=== PATIENT | female | born 1955 | race Hispanic/Latino ===

== ENCOUNTER → 2023-12-25 | Outpatient (CLI) | payer OTHER, MEDICARE ==
[~2023-12-25] MED LIST: GADOTERATE MEGLUMINE 10 MMOL/20 ML VIAL IV ONE
== END | disposition home or self-care (01) ==
LOC: RAH 11:09
PROVIDERS: ATTEND Family Medicine
DX: H53.40 Unspecified visual field defects (principal); H74.8X1 Other specified disorders of right middle ear and mastoid; R94.118 Abnormal results of other function studies of eye
CPT/HCPCS: 70553; A9575

== ENCOUNTER → 2024-05-18 | Outpatient (CLI) | payer OTHER, MEDICARE ==
--- NOTE | 2024-05-18 09:49 | HMCIMG ---
SHOULDER COMP 2+VWS RT REASON: Pain in right shoulder TECHNIQUE: 2 views were obtained. FINDINGS: There is no evidence of fracture or dislocation. Glenohumeral joint space appears preserved. There is a focal 7 mm calcification in the region of the supraspinatus portion of the rotator cuff tendon, this could represent calcific tendinitis. There is no evidence of a radiopaque foreign body. IMPRESSION: 1. Possible calcific tendinitis. 2. No acute finding.
== END | disposition home or self-care (01) ==
LOC: OIH 07:40
PROVIDERS: ATTEND Family Medicine
DX: M25.811 Other specified joint disorders, right shoulder (principal); M25.511 Pain in right shoulder
CPT/HCPCS: 73030